=== PATIENT | male | born 1950 | race African-American/Black ===

== ENCOUNTER 2016-08-04 10:55 | Day surgery (SDC) | payer OTHER ==
--- NOTE | 2016-07-29 11:17 | EKG Report ---
Test Performed on : 07/29/2016 11:00:41 AM Test Reason : PAT Blood Pressure : / mmHG Vent. Rate : 081 BPM Atrial Rate : 081 BPM P-R Int : 160 ms QRS Dur : 094 ms QT Int : 388 ms P-R-T Axes : 054 016 013 degrees QTc Int : 450 ms Normal sinus rhythm. Normal ECG No previous ECGs available Confirmed by Sasha VELASQUEZ, Nabeel Velez ([id number]) on 07/29/2016 5:24:28 PM
[2016-07-29 11:38] LABS: HEMATOCRIT 41.8 % (42.0-52.0); HEMOGLOBIN 14.2 g/dL (14.0-18.0); MCH 30.3 PG (27-31); MCV 89.3 FL (81-99); MPV 11.5 FL (7.4-10.4); RBC 4.68 XMIL (4.7-6.1)
[2016-07-29 11:46] LABS: INR 0.95; PROTIME 10.1 Seconds (9.2-11.7); PTT 30.7 Seconds (22.0-36.0)
[2016-07-29 12:01] LABS: AGAP 14; BUN 15 mg/dL (8-22); CALCIUM 9.5 mg/dL (8.8-10.2); CHLORIDE 105 mmol/L (98-107); COSMO 285; POTASSIUM 3.9 mmol/L (3.5-5.1); SODIUM 142 mmol/L (136-145); TCO2 23 mmol/L (25-35)
--- NOTE | 2016-08-03 13:09 | HISTORY AND PHYSICAL ---
HISTORY OF PRESENT ILLNESS: A 65-year-old male with significant BPH with frequency, weak stream, and nocturia. He has tried Flomax, Rapaflo 5 mg daily, Cialis as well as finasteride. He reports his symptoms improved the most on finasteride but he is still dissatisfied with his voiding. He desires further intervention. He underwent cystoscopy on 07/29/2016 which confirmed significant bilobar prostatic hypertrophy. He presents for definitive surgical intervention. PAST MEDICAL HISTORY: 1. Hypertension. 2. Hyperlipidemia. 3. BPH. 4. GERD. 5. Allergic rhinitis. PAST SURGICAL HISTORY: Hernia repair. MEDICATIONS: Doxepin, aspirin, Lipitor, lansoprazole, finasteride, cetirizine and Norvasc. ALLERGIES: No known drug allergies. FAMILY HISTORY: Negative for malignancies. SOCIAL HISTORY: Former alcohol user, denies tobacco or illicit drug use. PHYSICAL EXAMINATION: GENERAL: No acute distress. HEENT: Normocephalic, atraumatic. CARDIOVASCULAR: Regular rhythm. ABDOMEN: Protuberant, nontender to palpation. : Normal external male genitalia. ASSESSMENT: A 65-year-old male with significant benign prostatic hypertrophy which has been refractory to medical treatment. He desires transurethral resection of prostate. We discussed in detail risks of the procedure including but not limited to bleeding, infection, injury to adjacent structures, small risk of urinary incontinence, small risk of worsening erectile function, delayed complications such as scar tissue and need for additional interventions. He voiced understanding and wants to proceed. PLAN: Bipolar transurethral resection of the prostate.
[2016-08-04] MEDS ORDERED: REGLAN ONE (11:06)
[2016-08-04] MEDS ORDERED: LR 1,000 ML ONE ×2 (11:06→16:22)
[2016-08-04] MEDS ORDERED: PEPCID ONE (11:06)
[2016-08-04] MEDS ORDERED: KEFZOL 2 GM/D5W 50 ML ONE (11:07)
[2016-08-04] MEDS: LABETALOL ONE ×2 (14:50→15:04)
[2016-08-04] MEDS ORDERED: APRESOLINE ONE (15:22)
[2016-08-04] MEDS ORDERED: D5 1/2 NS 1,000 ML ONE (15:29)
[2016-08-04] MEDS ORDERED: DEMEROL ONE (15:35)
[2016-08-04] MEDS ORDERED: DITROPAN ONE (15:36)
[2016-08-04] MEDS ORDERED: DIPRIVAN 1% ONE (16:07)
[2016-08-04] MEDS ORDERED: FENTANYL ONE (16:07)
[2016-08-04] MEDS ORDERED: VERSED ONE (16:07)
[2016-08-04] MEDS ORDERED: ZOFRAN ONE (16:21)
[2016-08-04] MEDS ORDERED: XYLOCAINE-MPF 2% ONE (16:22)
[2016-08-04] MEDS ORDERED: ROBINUL ONE (16:22)
[2016-08-04] MEDS ORDERED: PHENERGAN IV PRN (17:31)
[2016-08-04] MEDS ORDERED: TYLENOL PO PRN (17:31)
[2016-08-04] MEDS ORDERED: MORPHINE IV PRN (17:31)
[2016-08-04] MEDS ORDERED: BENADRYL IV PRN (17:31)
[2016-08-04] MEDS ORDERED: LABETALOL IV PRN (17:31)
[2016-08-04] MEDS ORDERED: B & O 15A SUPP PR PRN (17:31)
[2016-08-04] MEDS ORDERED: NORCO-7.5 PO PRN (17:31)
[2016-08-04] MEDS ORDERED: BENADRYL LIQUID PO PRN (17:31)
[2016-08-04] MEDS ORDERED: DITROPAN PO PRN (17:31)
[2016-08-04] MEDS ORDERED: SODIUM CHLORIDE 0.9% INJ PRN (17:31)
[2016-08-04] MEDS ORDERED: PHENERGAN PO PRN (17:31)
[2016-08-04] MEDS ORDERED: PHENERGAN PR PRN (17:31)
[2016-08-04] MEDS ORDERED: ZOFRAN IV PRN (17:31)
--- NOTE | 2016-08-04 17:44 | OPERATIVE NOTE ---
PROCEDURE DATE: 08/04/2016 PREOPERATIVE DIAGNOSIS: Benign prostatic hypertrophy with obstructive voiding. POSTOPERATIVE DIAGNOSIS: Benign prostatic hypertrophy with obstructive voiding. PROCEDURE PERFORMED: Transurethral resection of the prostate with the loop. SURGEON: Wellington Stephens MD INDICATIONS: This is a 65-year-old male with a long-standing history of BPH with significant lower urinary tract symptoms. He had failed previous medical therapy and most recently Proscar. He desires surgical intervention. FINDINGS: Significant bilobar prostatic hypertrophy. Adequate hemostasis at the conclusion of the case. PROCEDURE IN DETAIL: After obtaining informed consent, the patient was brought to the operative room. Perioperative antibiotics and laryngeal mask airway anesthesia were administered. He was placed in lithotomy position and prepped and draped in a sterile fashion. A 21-Beninese rigid cystoscope was used to gain access to the bladder, which was then examined in systematic fashion. His prostatic urethra. Had significant bilobar hypertrophy. He did not have a sizeable median lobe. The bladder had no evidence of mucosal lesions, excessive trabeculations, or sizable diverticula. I was able to visualize bilateral ureteral orifices and clear efflux. We removed the cystoscope and introduced a 25-Beninese rigid resectoscope. A bipolar gyrus loop was then used to resect prostatic adenoma from the bladder neck down to the level of the verumontanum, to the depth of the prostatic capsule. We did that at 6 o'clock. We then did it in a clockwise and counterclockwise fashion. The [employer] evacuator was used to remove prostate chips. Following that, reexamination showed no evidence of residual fragments, good TUR defect, no evidence of significant bleeding. The resectoscope was removed and a 22-Beninese 3-way coude Selby was placed with return of light pink urine without clots. He was connected to continuous bladder irrigation with normal saline. He was extubated and taken to the PACU for further recovery. ESTIMATED BLOOD LOSS: 50 mL. COMPLICATIONS: None. DISPOSITION: To PACU and subsequently the floor for observation with Selby catheter to gravity drainage and continuous bladder irrigation.
[2016-08-04] MEDS: D5 1/2 NS 1,000 ML IV SCH (19:46)
[2016-08-04] MEDS: PERIDEX MT SCH (20:14)
[2016-08-04] MEDS: COLACE PO SCH (20:15)
[2016-08-04] MEDS: KEFZOL 1 GM/D5W 50 ML IV SCH (20:15)
[2016-08-04] MEDS ORDERED: SINEQUAN PO SCH ×2 (21:00)
[2016-08-04] MEDS ORDERED: LIPITOR PO SCH (21:00)
[2016-08-05] MEDS: KEFZOL 1 GM/D5W 50 ML IV SCH ×3 (00:55→06:23)
[2016-08-05 06:46] LABS: HEMATOCRIT 40.4 % (42.0-52.0); HEMOGLOBIN 13.2 g/dL (14.0-18.0); MCH 30.2 PG (27-31); MCHC 32.7 g/dL (33-37); MCV 92.4 FL (81-99); MPV 11.8 FL (7.4-10.4); RBC 4.37 XMIL (4.7-6.1)
[2016-08-05] MEDS ORDERED: PRILOSEC PO SCH (07:00)
[2016-08-05 07:03] LABS: AGAP 13; BUN 11 mg/dL (8-22); CALCIUM 8.6 mg/dL (8.8-10.2); CHLORIDE 104 mmol/L (98-107); COSMO 283; POTASSIUM 3.7 mmol/L (3.5-5.1); SODIUM 142 mmol/L (136-145); TCO2 25 mmol/L (25-35)
[2016-08-05 07:24] VITALS: BP 115/66
[2016-08-05] MEDS: D5 1/2 NS 1,000 ML IV SCH (07:56)
[2016-08-05] MEDS ORDERED: ZYRTEC PO SCH (09:00)
[2016-08-05] MEDS ORDERED: NORVASC PO SCH (09:00)
[2016-08-05] MEDS: PERIDEX MT SCH (09:47)
[2016-08-05] MEDS: COLACE PO SCH (09:47)
== END 2016-08-05 10:24 | disposition home or self-care (01) ==
LOC: OPS 10:55 → 4N 15:05 → UNDOADMOB 15:05 → OPS 08-05 10:24 → UNDODISOB 08-05 10:24
PROVIDERS: ATTEND Urology
DX: N40.1 Benign prostatic hyperplasia with lower urinary tract symptoms (principal); N13.8 Other obstructive and reflux uropathy; R35.0 Frequency of micturition; R39.12 Poor urinary stream; R35.1 Nocturia; I10 Essential (primary) hypertension; E78.5 Hyperlipidemia, unspecified; K21.9 Gastro-esophageal reflux disease without esophagitis; J30.9 Allergic rhinitis, unspecified; Z79.899 Other long term (current) drug therapy; Z79.82 Long term (current) use of aspirin; F17.220 Nicotine dependence, chewing tobacco, uncomplicated
CPT/HCPCS: 80048; 85027; 85610; 85730; 88305; 88313; 93005; 93010; 94799; J0360; J0690; J2175; J2250; J2405; J3010; J7120